=== PATIENT | female | born 1965 | race Caucasian/White ===

== ENCOUNTER → 2016-05-03 | Outpatient (REF) | payer OTHER ==
[~2016-05-03] MED LIST: ORTH1TAB4 PO
== END ==
LOC: M SFHCPLAZ 15:48
PROVIDERS: ATTEND Family Medicine
DX: Z13.220 Encounter for screening for lipoid disorders (principal)

== ENCOUNTER → 2016-06-15 | Outpatient (CLI) | payer OTHER ==
--- NOTE | 2016-06-15 14:22 | REPMRS ---
Patient History The patient states she had a clinical breast exam in No known family history of cancer. Taking hormonal contraceptives for 34 years. Digital Woman Screen Mammo: June 15, 2016 - Exam #: [id number] Bilateral CC and MLO view(s) were taken. Technologist: Radha Zuniga, Technologist Prior study comparison: April 29, 2015, digital woman screen mammo performed at [facility]. February 25, 2014, digital woman screen mammo performed at [facility]. FINDINGS: The breast tissue is heterogeneously dense. This may lower the sensitivity of mammography. There has been no change in the appearance of the mammogram from the prior studies. There is a moderate amount of residual fibroglandular tissue which is fairly symmetric. There is no interval development of dominant mass, architectural distortion, or clustered microcalcification typical of malignancy. No significant changes when compared with prior studies. ASSESSMENT: BI-RADS/ACR category 1 mammogram. Negative. Recommendation Routine screening mammogram in 1 year (for women over age 40). This mammogram was interpreted with the aid of an FDA-approved computer-aided dectection system. A. Negative x-ray reports should not delay biopsy if a dominant or clinically suspicious mass is present. B. Four to eight percent of cancers are not identified by mammography. C. Adenosis and dense breast may obscure an underlying neoplasm. Electronically Signed By: Sarkis Menchaca MD 06/15/16 2074
== END ==
LOC: M WHC 10:59
PROVIDERS: ATTEND Nurse Practitioner Family
DX: Z12.31 Encounter for screening mammogram for malignant neoplasm of breast (principal)

== ENCOUNTER → 2017-09-27 | Outpatient (CLI) | payer OTHER | LOC: M WHC 14:32 | DX: Z12.31 Encounter for screening mammogram for malignant neoplasm of breast (principal); Z79.3 Long term (current) use of hormonal contraceptives | CPT/HCPCS: 77067 ==

== ENCOUNTER → 2018-10-31 | Outpatient (REF) | payer OTHER ==
[~2018-10-31] MED LIST changes: +ORTH1TAB10 PO; -ORTH1TAB4 PO
[2018-11-03 00:07] LABS: HPV HYBRID CAPTURE II Negative (Negative)
== END ==
LOC: M SFHCWAGY 08:28
PROVIDERS: ATTEND Nurse Practitioner Family
DX: Z12.4 Encounter for screening for malignant neoplasm of cervix (principal)
CPT/HCPCS: 87624; G0123

== ENCOUNTER → 2018-10-31 | Outpatient (CLI) | payer OTHER ==
--- NOTE | 2018-10-31 10:06 | REPMRS ---
Patient History The patient states she had a clinical breast exam in 10/2018. No known family history of cancer. Taking hormonal contraceptives for 36 years. 3D TOMOSYNTHESIS WAS PERFORMED. [facility].9%. Digital Woman Screen Mammo: October 31, 2018 - Exam #: [id number] Bilateral CC and MLO view(s) were taken. Technologist: Michelle Rodriges, Technologist Prior study comparison: September 27, 2017, digital woman screen mammo performed at [facility]. June 15, 2016, digital woman screen mammo performed at [facility]. FINDINGS: The breast tissue is heterogeneously dense. This may lower the sensitivity of mammography. There has been no change in the appearance of the mammogram from the prior studies. There is a moderate amount of residual fibroglandular tissue which is fairly symmetric. There is no interval development of dominant mass, areas of architectural distortion, or clustered microcalcification typical of malignancy. Assessment: BI-RADS/ACR category 1 mammogram. Negative Mammogram. Recommendation Routine screening mammogram in 1 year (for women over age 40). This mammogram was interpreted with the aid of an FDA-approved computer-aided dectection system. Electronically Signed By: Jeromy Rangel MD 10/31/18 [id number]
== END ==
LOC: M WHC 08:14
PROVIDERS: ATTEND Nurse Practitioner Family
DX: Z12.31 Encounter for screening mammogram for malignant neoplasm of breast (principal)

== ENCOUNTER → 2019-11-02 | Outpatient (CLI) | payer OTHER ==
--- NOTE | 2019-11-02 09:19 | REPMRS ---
Patient History The patient states she had a clinical breast exam in October 2019. No known family history of cancer. Taking hormonal contraceptives for 36 years. 3D TOMOSYNTHESIS WAS PERFORMED. [facility]%. SARAI Gilbert. Digital Woman Screen Mammo: November 02, 2019 - Exam #: [id number] Bilateral CC and MLO view(s) were taken. Technologist: Sana Storm, Technologist Prior study comparison: October 31, 2018, bilateral digital woman screen mammo performed at [facility] [place]. September 27, 2017, digital woman screen mammo performed at [facility]. FINDINGS: The breast tissue is heterogeneously dense. This may lower the sensitivity of mammography. There has been no change in the appearance of the mammogram from the prior studies. There is a moderate amount of residual fibroglandular tissue which is fairly symmetric. There is no interval development of dominant mass, areas of architectural distortion, or clustered microcalcification typical of malignancy. Assessment: BI-RADS/ACR category 1 mammogram. Negative Mammogram. Recommendation Routine screening mammogram in 1 year (for women over age 40). This mammogram was interpreted with the aid of an FDA-approved computer-aided dectection system. Electronically Signed By: Jeromy Rangel MD 11/02/19 0919
== END ==
LOC: M WHC 08:02
PROVIDERS: ATTEND Nurse Practitioner Family
DX: Z12.31 Encounter for screening mammogram for malignant neoplasm of breast (principal); Z79.3 Long term (current) use of hormonal contraceptives